=== PATIENT | female | born 1970 ===

== ENCOUNTER 2017-09-22 13:32 | Inpatient (IN) ==
[2017-09-22] MEDS ORDERED: GLUCAGON 1 MG VIAL IM PRN (19:26)
[2017-09-22] MEDS ORDERED: ONDANSETRON 4 MG/2 ML VIAL IV PRN (19:26)
[2017-09-22] MEDS ORDERED: ACETAMINOPHEN 325 MG TABLET PO PRN (19:26)
[2017-09-22] MEDS ORDERED: DEXTROSE 50% 25 GM/50 ML VIAL IV PRN (19:26)
[2017-09-22] MEDS ORDERED: NICOTINE 21 MG/24 HR PATCH TRANSDERM PRN (19:26)
[2017-09-22] MEDS ORDERED: CIPROFLOXACIN IV SCH (20:00)
[2017-09-22 20:28] LABS: Basophils # 0.1 10*3/uL (0.0-0.2); Basophils % 0.6 % (0.0-0.8); Eosinophils # 0.3 10*3/uL (0.0-0.87); Eosinophils % 2.7 % (0.00-10.9); Hematocrit 27.6 VOL% (35.7-47.0); Hemoglobin 9.3 GM/DL (12.0-16.0); Immature Granulocytes % 0.5 %; Immature Granulocytes Absolute 0.05 #; Lymphocytes # 2.4 10*3/uL (1.4-4.0); Lymphocytes % 25.7 % (21.3-54.2); Mean Corpuscular HGB Conc 33.7 GM/DL (32-36); Mean Corpuscular Hemoglobin 31 PG (27-34); Mean Platelet Volume 9.6 FL (9.6-12.0); Monocytes # 0.5 10*3/uL (0.11-0.8); Monocytes % 5.1 % (1.7-12.7); Neutrophils # 6.1 10*3/uL (1.4-7.4); Neutrophils % 65.4 % (38.7-73.9); Platelet Count 235 T/CUMM (130-400); Red Cell Distribution Width 12.4 % (9.3-17.3); White Blood Count 9.4 T/CUMM (4-12)
[2017-09-22 20:38] LABS: PT Patient Result 10.1 SECS
[2017-09-22] MEDS ORDERED: INSULIN GLARGINE 100 UNIT/ML SUBCUT SCH (21:00)
[2017-09-22 21:16] LABS: Alanine Aminotransferase 20 U/L (13-56); Albumin 2.6 G/DL (3.4-5.0); Alkaline Phosphatase 126 U/L (45-117); Aspartate Amino Transferase 17 U/L (0-37); Bilirubin,Total < 0.39 MG/DL (0.2-1.0); Blood Urea Nitrogen 19 MG/DL (7-18); Calcium 8.1 MG/DL (8.5-10.1); Glucose 311 MG/DL (74-106); Magnesium 1.9 MG/DL (1.8-2.4); Osmolality,Calculated 288.7 MOS/KG (273-304); Potassium 4.5 MMOL/L (3.5-5.1); Sodium 138 MMOL/L (136-145); Total Protein 6.5 G/DL (6.4-8.3)
[2017-09-22] MEDS: SODIUM CHLORIDE 0.9% 1,000 ML IV SCH (22:38)
[2017-09-22] MEDS: CLINDAMYCIN INJ 600 MG in PREMIX 1 EACH IV SCH (22:38)
[2017-09-22] MEDS: VANCOMYCIN INJ 1,500 MG in SODIUM CHLORIDE 0.9% 500 ML IV SCH (23:07)
[2017-09-23 00:43] LABS: Apearance,Urine CLEAR (Clear); Bacteria,Urine Occasional /HPF (Few); Bilirubin,Urine Negative (Negative); Blood, Urine Negative (Negative); Glucose,Urine (UA) >=500 mg/dL (Negative); Hyaline Casts,Urine 1 /LPF (0-3); Ketones,Urine Negative (Negative); Nitrite,Urine Negative (Negative); Protein,Urine Negative; RBC,Urine 1 /HPF (0-4); Squamous Epithelial Cell,Urine Occasional /HPF (0-10); Urine Color Yellow (Yellow); Urine Specific Gravity 1.012 (1.001-1.035); Urine Urobilinogen < 2.0 EU/DL (0.2-1.0); WBC,Urine 1 /HPF (0-6)
[2017-09-23] MEDS: INSULIN LISPRO 100 UNIT/ML SUBCUT SCH ×4 (02:20→18:13)
[2017-09-23] MEDS: CLINDAMYCIN INJ 600 MG in PREMIX 1 EACH IV SCH ×3 (04:22→21:27)
[2017-09-23] MEDS ORDERED: MORPHINE 2 MG/1 ML SYRINGE IV ONE (08:30)
[2017-09-23] MEDS: PANTOPRAZOLE 40 MG TABLET PO SCH (09:40)
[2017-09-23] MEDS: INSULIN GLARGINE 100 UNIT/ML SUBCUT SCH (09:40)
[2017-09-23] MEDS: ENOXAPARIN 40 MG/0.4 ML SYRINGE SUBCUT SCH (09:41)
[2017-09-23] MEDS: POLYETHYLENE GLYCOL POWDER 17 GM PACK PO SCH (09:41)
[2017-09-23] MEDS: VANCOMYCIN INJ 1,500 MG in SODIUM CHLORIDE 0.9% 500 ML IV SCH ×2 (10:57→21:52)
[2017-09-23] MEDS: SODIUM CHLORIDE 0.9% 1,000 ML IV SCH (15:21)
[2017-09-24] MEDS: SODIUM CHLORIDE 0.9% 1,000 ML IV SCH ×2 (00:03)
[2017-09-24] MEDS: INSULIN LISPRO 100 UNIT/ML SUBCUT SCH ×2 (00:55→06:38)
[2017-09-24] MEDS: CLINDAMYCIN INJ 600 MG in PREMIX 1 EACH IV SCH (05:02)
[2017-09-24 06:45] LABS: Basophils # 0.1 10*3/uL (0.0-0.2); Basophils % 0.8 % (0.0-0.8); Eosinophils # 0.3 10*3/uL (0.0-0.87); Eosinophils % 3.8 % (0.00-10.9); Hematocrit 24.5 VOL% (35.7-47.0); Hemoglobin 8.1 GM/DL (12.0-16.0); Immature Granulocytes % 0.5 %; Immature Granulocytes Absolute 0.04 #; Lymphocytes # 2.9 10*3/uL (1.4-4.0); Lymphocytes % 37.4 % (21.3-54.2); Mean Corpuscular HGB Conc 33.1 GM/DL (32-36); Mean Corpuscular Hemoglobin 31 PG (27-34); Mean Corpuscular Volume 92.8 FL (87-102); Monocytes # 0.6 10*3/uL (0.11-0.8); Monocytes % 7.7 % (1.7-12.7); Neutrophils # 3.8 10*3/uL (1.4-7.4); Neutrophils % 49.8 % (38.7-73.9); Platelet Count 250 T/CUMM (130-400); Red Blood Count 2.64 MC/CUMM (3.8-5.5); Red Cell Distribution Width 12.4 % (9.3-17.3); White Blood Count 7.7 T/CUMM (4-12)
[2017-09-24 07:22] LABS: Calcium 7.8 MG/DL (8.5-10.1); Potassium 4.2 MMOL/L (3.5-5.1)
[2017-09-24 07:27] LABS: Albumin 2.1 G/DL (3.4-5.0); Bilirubin,Total 0.5 MG/DL (0.2-1.0); Calcium 7.6 MG/DL (8.5-10.1); Phosphorous 2.6 MG/DL (2.5-4.9); Potassium 4.1 MMOL/L (3.5-5.1); Total Protein 5.3 G/DL (6.4-8.3)
[2017-09-24] MEDS: VANCOMYCIN INJ 1,500 MG in SODIUM CHLORIDE 0.9% 500 ML IV SCH (08:55)
[2017-09-24] MEDS: PANTOPRAZOLE 40 MG TABLET PO SCH (09:02)
[2017-09-24] MEDS: INSULIN GLARGINE 100 UNIT/ML SUBCUT SCH (09:02)
[2017-09-24] MEDS: POLYETHYLENE GLYCOL POWDER 17 GM PACK PO SCH (09:03)
[2017-09-24] MEDS: ENOXAPARIN 40 MG/0.4 ML SYRINGE SUBCUT SCH (09:03)
[2017-09-24 09:07] VITALS: BP 166/94
[2017-09-24] MEDS ORDERED: CLINDAMYCIN 300 MG CAPSULE PO SCH (12:00)
[2017-09-25] MEDS ORDERED: SULFAMETHOX/TRIMETHOPRIM 800-160 MG TABLET PO SCH (09:00)
== END 2017-09-24 10:30 | disposition home or self-care (01) | DRG 518 ==
LOC: N.2E 14:25
PROVIDERS: ADMIT Hospitalist; ATTEND Hospitalist

== ENCOUNTER 2018-06-27 17:08 | Observation (INO) ==
[2018-06-27] MEDS ORDERED: DEXTROSE 50% 25 GM/50 ML VIAL IV PRN (19:41)
[2018-06-27] MEDS ORDERED: GLUCAGON 1 MG VIAL IM PRN (19:41)
[2018-06-27] MEDS ORDERED: MECLIZINE 25 MG TABLET PO PRN (19:49)
[2018-06-27] MEDS ORDERED: hydrALAZINE 20 MG/1 ML VIAL IV PRN (20:01)
[2018-06-27] MEDS ORDERED: SODIUM POLYSTYRENE SULFATE 15 GM/60 ML BOTTLE PO PRN (20:02)
[2018-06-27] MEDS: CALCIUM (CARBONATE) 500 MG TABLET PO SCH (21:28)
[2018-06-27] MEDS: GABAPENTIN 400 MG CAPSULE PO SCH (21:28)
[2018-06-27] MEDS: INSULIN GLARGINE 100 UNIT/ML SUBCUT SCH (21:29)
[2018-06-27] MEDS: ENOXAPARIN 40 MG/0.4 ML SYRINGE SUBCUT SCH (21:29)
[2018-06-27] MEDS: FAMOTIDINE 20 MG TABLET PO SCH (21:29)
[2018-06-27] MEDS: PRAVASTATIN 20 MG TABLET PO SCH (21:29)
[2018-06-27] MEDS: SODIUM CHLORIDE 0.45% 1,000 ML IV SCH (21:29)
[2018-06-27] MEDS: INSULIN REGULAR 100 UNIT/ML SUBCUT SCH (21:30)
[2018-06-27] MEDS: ESCITALOPRAM 10 MG TABLET PO SCH (21:33)
[2018-06-28] MEDS: SODIUM CHLORIDE 0.45% 1,000 ML IV SCH ×3 (05:27→20:24)
[2018-06-28] MEDS: ACETAMINOPHEN 325 MG TABLET PO PRN ×3 (05:28→23:56)
[2018-06-28 05:29] LABS: Basophils % 0.5 % (0.0-0.8); Eosinophils # 0.2 10*3/uL (0.0-0.87); Eosinophils % 2.8 % (0.00-10.9); Hematocrit 26.9 VOL% (35.7-47.0); Hemoglobin 8.9 GM/DL (12.0-16.0); Immature Granulocytes % 0.6 %; Immature Granulocytes Absolute 0.04 #; Lymphocytes # 2.2 10*3/uL (1.4-4.0); Lymphocytes % 36.2 % (21.3-54.2); Mean Corpuscular HGB Conc 33.1 GM/DL (32-36); Mean Corpuscular Hemoglobin 31 PG (27-34); Mean Corpuscular Volume 92.8 FL (87-102); Mean Platelet Volume 10.1 FL (9.6-12.0); Monocytes # 0.6 10*3/uL (0.11-0.8); Monocytes % 9.7 % (1.7-12.7); Neutrophils # 3.1 10*3/uL (1.4-7.4); Neutrophils % 50.2 % (38.7-73.9); Platelet Count 226 T/CUMM (130-400); Red Cell Distribution Width 13.1 % (9.3-17.3); White Blood Count 6.2 T/CUMM (4-12)
[2018-06-28 06:11] LABS: Calcium 7.9 MG/DL (8.5-10.1)
[2018-06-28 06:12] LABS: Osmolality,Calculated 293.3 MOS/KG (273-304); Potassium 5.1 MMOL/L (3.5-5.1); Risk Ratio 2.67; Thyroid Stimulating Hormone 0.433 uIU/ml (0.358-3.74); VLDL CHOLESTEROL 24.4 MG/DL
[2018-06-28] MEDS: GABAPENTIN 400 MG CAPSULE PO SCH ×3 (08:12→20:24)
[2018-06-28] MEDS: ASPIRIN EC 81 MG TABLET PO SCH (08:12)
[2018-06-28] MEDS: buPROPion SR 150 MG TABLET PO SCH (08:12)
[2018-06-28] MEDS: CALCIUM (CARBONATE) 500 MG TABLET PO SCH ×2 (08:12→20:24)
[2018-06-28] MEDS: glyBURIDE 5 MG TABLET PO SCH ×2 (08:12→17:01)
[2018-06-28] MEDS: INSULIN LISPRO 100 UNIT/ML SUBCUT SCH ×3 (08:13→17:01)
[2018-06-28] MEDS: INSULIN REGULAR 100 UNIT/ML SUBCUT SCH ×4 (08:13→20:25)
[2018-06-28] MEDS: INSULIN GLARGINE 100 UNIT/ML SUBCUT SCH ×2 (08:13→20:29)
[2018-06-28] MEDS: PRAVASTATIN 20 MG TABLET PO SCH (20:24)
[2018-06-28] MEDS: ESCITALOPRAM 10 MG TABLET PO SCH (20:24)
[2018-06-28] MEDS: FAMOTIDINE 20 MG TABLET PO SCH (20:24)
[2018-06-28] MEDS: ENOXAPARIN 40 MG/0.4 ML SYRINGE SUBCUT SCH (20:25)
[2018-06-29] MEDS: SODIUM CHLORIDE 0.45% 1,000 ML IV SCH ×2 (04:19→12:47)
[2018-06-29] MEDS: buPROPion SR 150 MG TABLET PO SCH (08:58)
[2018-06-29] MEDS: CALCIUM (CARBONATE) 500 MG TABLET PO SCH (08:58)
[2018-06-29] MEDS: GABAPENTIN 400 MG CAPSULE PO SCH (08:59)
[2018-06-29] MEDS: glyBURIDE 5 MG TABLET PO SCH (08:59)
[2018-06-29] MEDS: ASPIRIN EC 81 MG TABLET PO SCH (08:59)
[2018-06-29] MEDS: INSULIN LISPRO 100 UNIT/ML SUBCUT SCH ×2 (08:59→12:47)
[2018-06-29] MEDS: INSULIN GLARGINE 100 UNIT/ML SUBCUT SCH (08:59)
[2018-06-29] MEDS: INSULIN REGULAR 100 UNIT/ML SUBCUT SCH ×2 (09:00→12:47)
[2018-06-29 13:11] VITALS: BP 168/84
[2018-06-29] MEDS: ACETAMINOPHEN 325 MG TABLET PO PRN (13:15)
[2018-06-29] MEDS ORDERED: BUTALBITAL/ACETAMIN/CAFFEINE 50-325-40 MG TABLET PO PRN (14:12)
[2018-06-30] MEDS ORDERED: FUROSEMIDE 20 MG TABLET PO SCH (09:00)
== END 2018-06-29 15:18 | disposition home or self-care (01) ==
LOC: N.TELEN → SUATTDRO 19:12
PROVIDERS: ADMIT Internal Medicine; ATTEND Hospitalist